=== PATIENT | female | born 1965 | race African-American/Black ===

== ENCOUNTER 2020-11-10 13:24 | Emergency (ER) | payer OTHER ==
[~2020-11-10] VITALS: Ht 175.3 cm; Wt 109.3 kg
[2020-11-10] MEDS ORDERED: GADOTERATE MEGLUMINE 10 MMOL/20 ML VIAL IV ONE (13:33)
--- NOTE | 2020-11-10 13:51 | NUR ---
TO ER BED 2, [id number] [facility]CG[facility] OFFICE C/O SEVERE LOWER BACK PAIN, AAOX4, BREATHING EVEN AND NON LABORED, AWAITING MD MCCLELLAN
[2020-11-10] MEDS ORDERED: ONDANSETRON HCL/PF 4 MG/2 ML VIAL IVP ONE (15:00)
[2020-11-10] MEDS ORDERED: MORPHINE SULFATE INJ 2 MG/ML DISP.SYRIN IV ONE ×3 (15:00→22:30)
[2020-11-10] MEDS ORDERED: IV NS 0.9% 500 ML BAG IV ONE (15:00)
[2020-11-10] MEDS ORDERED: ONDANSETRON HCL/PF 4 MG/2 ML VIAL ONE (15:14)
[2020-11-10] MEDS ORDERED: MORPHINE SULFATE INJ 4 MG/ML DISP.SYRIN ONE ×3 (15:15→22:36)
[2020-11-10 15:43] LABS: BASOPHILS % (AUTO) 0.8 % (0.0-2.0); EOSINOPHILS % (AUTO) 0.5 % (0.0-6.0); HEMATOCRIT 36 % (33-45); HEMOGLOBIN 11.9 g/dL (11.5-14.8); LYMPHOCYTES # (AUTO) 1.6 K/uL (0.8-4.8); LYMPHOCYTES % (AUTO) 34.2 % (20.0-44.0); MEAN CORPUSCULAR HGB CONC 33 g/dl (31.0-36.0); MEAN CORPUSCULAR VOLUME 88 fL (82-100); MONOCYTES # (AUTO) 0.4 K/uL (0.1-1.30); MONOCYTES % (AUTO) 8.1 % (2.0-12.0); NEUTROPHILS # (AUTO) 2.6 K/uL (1.8-8.9); NEUTROPHILS % (AUTO) 56.4 % (43.0-81.0); PLATELET COUNT (AUTO) 264 K/uL (150-450); RED BLOOD CELL COUNT(AUTO) 4.07 MIL/uL (4.0-5.2); WHITE BLOOD COUNT (AUTO) 4.7 K/uL (4.3-11.0)
--- NOTE | 2020-11-10 15:48 | NUR ---
URINE COLLECTED AND SENT TO LAB
[2020-11-10 15:49] LABS: CALCIUM, SERUM 9.7 mg/dL (8.5-10.1); CREATININE 0.9 mg/dL (0.6-1.3); POTASSIUM 4.4 mmol/L (3.5-5.1)
--- NOTE | 2020-11-10 15:51 | NUR ---
TAKEN TO CT
[2020-11-10 17:22] LABS: BILIRUBIN,URINE Negative (NEGATIVE); COLOR,URINE YELLOW (YELLOW); LEUKOCYTE ESTERASE ,URINE Negative (NEGATIVE); NITRITE, URINE Negative (NEGATIVE); PH,URINE 8.5 (5.0-8.0); PROTEIN,URINE Negative (NEGATIVE); UGLUCOSE Negative (NEGATIVE); UROBILINOGEN,URINE 0.2 EU/dL (0.2)
--- NOTE | 2020-11-10 17:51 | NUR ---
TEXTED DR. GERARDO FOR MRI APPROVAL.
--- NOTE | 2020-11-10 19:07 | NUR ---
MRI WILL BE HERE BETWEEN 1929 TO 1999
--- NOTE | 2020-11-10 20:18 | NUR ---
PATIENT OUT TO MRI
--- NOTE | 2020-11-10 21:31 | NUR ---
BACK FROM MRI.
[2020-11-10] MEDS ORDERED: ACETAMINOPHEN 325 MG TABLET ONE (23:25)
[2020-11-10] MEDS ORDERED: LIDOCAINE 5% (PATCH) 1 EA PATCH TP SCH (23:30)
[2020-11-10] MEDS ORDERED: ACETAMINOPHEN 325 MG TABLET PO ONE (23:30)
[2020-11-10] MEDS ORDERED: LIDOCAINE 5% (PATCH) 1 EA PATCH TP ONE (23:34)
[2020-11-10] MEDS ORDERED: HYDROMORPHONE INJ 2 MG/ML DISP.SYRIN ONE (23:59)
[2020-11-11] MEDS ORDERED: HYDROMORPHONE INJ 2 MG/ML DISP.SYRIN IV ONE
--- NOTE | 2020-11-11 | NUR ---
PT DICHARGED INSTRUCTIONS GIVEN WITH DISC. AWARE NOT TO DRIVE. 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
--- NOTE | 2020-11-11 00:19 | NUR ---
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 PT LEFT IN STABLE CONDITION
[2020-11-11 00:34] VITALS: BP 112/76
== END 2020-11-11 00:19 | disposition home or self-care (01) ==
LOC: ER 13:32
DX: M51.26 Other intervertebral disc displacement, lumbar region (principal); M48.061 Spinal stenosis, lumbar region without neurogenic claudication; L76.34 Postprocedural seroma of skin and subcutaneous tissue following other procedure; G89.29 Other chronic pain; Z88.6 Allergy status to analgesic agent; Z88.8 Allergy status to other drugs, medicaments and biological substances
CPT/HCPCS: 36415; 72131; 72158; 72192; 80048; 81003; 85025; 85652; 86140; 96374; 96375 ×2; 96376; 99285; A9575; J1170; J2270 ×3; J2405; J7040